=== PATIENT | male | born 1970 | race American Indian/Alaskan Native ===

== ENCOUNTER 2018-06-11 16:39 | Observation (INO) | payer MEDICARE, OTHER ==
--- NOTE | 2018-06-11 17:18 | C.PDOC ---
History Of Present Illness 48 y/o male with history of DM and HTN, on dialysis presents to ED with c/o left arm swelling radiating to left chest for 2 days. Patient state he missed dialysis yesterday and went to see Dr. Crenshaw today for medication refill and was sent to ED for further evaluation. Patient denies history of injury, sob, chest pain or any other complaints at this time. Time Seen by Provider: 06/11/18 16:58 Chief Complaint (Nursing): Upper Extremity Problem/Injury History Per: Patient History/Exam Limitations: no limitations Onset/Duration Of Symptoms: Days Current Symptoms Are (Timing): Still Present Quality: Aching Past Medical History Reviewed: Historical Data, Nursing Documentation, Vital Signs Vital Signs: Last Vital Signs Temp 98.1 F 06/11/18 16:46 Pulse 85 06/11/18 21:47 Resp 20 06/11/18 21:47 BP 176/98 H 06/11/18 21:47 Pulse Ox 98 06/11/18 21:47 - Medical History PMH: Diabetes, HTN, End Stage Renal Disease Other Surgeries: left AV fistula Family History: States: No Known Family Hx - Social History Hx Alcohol Use: No Hx Substance Use: No - Immunization History Hx Tetanus Toxoid Vaccination: No Hx Influenza Vaccination: No Hx Pneumococcal Vaccination: No Review Of Systems Constitutional: Negative for: Fever, Chills Cardiovascular: Negative for: Chest Pain Respiratory: Negative for: Cough, Shortness of Breath Musculoskeletal: Positive for: Arm Pain (swelling), Other (Sweling left breast) Skin: Negative for: Rash Physical Exam - Physical Exam Appears: Non-toxic, No Acute Distress Skin: Warm, Dry, No Rash Head: Atraumatic, Normacephalic Eye(s): bilateral: Normal Inspection Oral Mucosa: Moist Neck: Normal ROM, Other (venous engorgement to left side of neck) Chest: No Ecchymosis, Other (left breast swelling) Cardiovascular: Rhythm Regular Respiratory: Normal Breath Sounds, No Rales, No Rhonchi, No Wheezing Gastrointestinal/Abdominal: Soft, No Tenderness, No Guarding, No Rebound Extremity: Capillary Refill (<2 seconds), No Deformity, Swelling (left arm diffusely), Other (fistula on left arm with +thrill) Extremity: Bilateral: Normal ROM Neurological/Psych: Oriented x3, Normal Motor, Normal Sensation ED Course And Treatment - Laboratory Results Result Diagrams: 06/11/18 17:22 06/11/18 17:22 Lab Interpretation: Abnormal (Hgb 9.9, BUN 94. Cr 15.2, K+ 4.8) O2 Sat by Pulse Oximetry: 98 (RA) Pulse Ox Interpretation: Normal - CT Scan/US CTA Chest Other Rad Studies (CT/US): Read By Radiologist, Radiology Report Reviewed CT/US Interpretation: FINDINGS: Pulmonary arteries: Unremarkable. No pulmonary embolism. Aorta: No acute findings. No thoracic aortic aneurysm. Other veins: Left brachiocephalic vein metallic stent. The right tip of the stent appears compressed. The brachiocephalic vein is not clearly visualized distal to the stent. Lungs: Mild interstitial infiltrates in each lung which may be due to edema. Linear atelectasis or fibrosis left lung base. No mass. Pleural space : Unremarkable. No significant effusion. No pneumothorax. Heart: Coronary artery calcifications. No significant pericardial effusion. No evidence of RV dysfunction. Bones/joints: No acute fracture. No dislocation. Soft tissues: Diffuse subcutaneous edema consistent with anasarca. Lymph nodes: Unremarkable. No enlarged lymph nodes. IMPRESSION: 1. Diffuse subcutaneous edema consistent with anasarca. 2. Left brachiocephalic vein metallic stent. The right tip of the stent appears compressed. The. brachiocephalic vein is not clearly visualized distal to the stent. Cannot exclude occlusion of distal. brachiocephalic vein and a catheter venogram may be helpful if indicated. 3. Mild interstitial infiltrates in each lung which may be due to edema. CT Left Upper Extrem Other Rad Studies (CT/US): Read By Radiologist, Radiology Report Reviewed CT/US Interpretation: FINDINGS: Bones/joints: Unremarkable. No acute fracture. No dislocation. Soft tissues: Diffuse subcutaneous edema suggesting anasarca. Vasculature: Prominent veins in the left upper extremity consistent with patient 's known fistula. These veins are patent where visualized. The small veins below the elbow are poorly visualized. Atherosclerotic disease. IMPRESSION: 1. Diffuse subcutaneous edema suggesting anasarca. 2. Prominent veins in the left upper extremity consistent with patient's known fistula. These veins are. patent where visualized. The small veins below the elbow are poorly visualized. Reevaluation Time: 19:46 Reassessment Condition: Unchanged - Physician Consult Information Outcome Of Conversation: 19:[address] Sandra for nephrology consult. Patient will need dialysis today after CT scan is completed. Dr Sung agrees to admit the patient to her service for evaluation of left arm and chest wall swelling and possible DVT. Disposition - Disposition Disposition: HOSPITALIZED Disposition Time: 22:17 Condition: STABLE - Clinical Impression Clinical Impression: ESRD (end stage renal disease) on dialysis, Anasarca - Scribe Statement The provider has reviewed the documentation as recorded by the Harisibedith Monroy All medical record entries made by the Keke were at my direction and personally dictated by me. I have reviewed the chart and agree that the record accurately reflects my personal performance of the history, physical exam, medical decision making, and the department course for this patient. I have also personally directed, reviewed, and agree with the discharge instructions and disposition.
[2018-06-11 17:27] LABS: BASO % 0.9 % (0.0-2.0); EOS # 0.1 K/uL (0.0-0.7); EOS % 2.5 % (0.0-4.0); HEMOGLOBIN 9.9 g/dL (12.0-18.0); LYMPH # 0.6 K/uL (1.0-4.3); LYMPH % 10.2 % (20.0-40.0); MEAN CELL VOLUME 96.2 fL (80.0-94.0); MEAN CORPUSCULAR HEMOGLOBIN 31.5 pg (27.0-31.0); MEAN CORPUSCULAR HGB CONC 32.7 g/dL (33.0-37.0); MEAN PLATELET VOLUME 8.4 fL (7.2-11.7); MONO # 0.4 K/uL (0.0-0.8); MONO % 7.7 % (0.0-10.0); NEUT # 4.4 K/uL (1.8-7.0); NEUT % 78.7 % (50.0-75.0); RBC 3.16 Mil/uL (4.40-5.90); RED CELL DISTRIBUTION WIDTH 16.5 % (11.5-14.5); WHITE BLOOD COUNT 5.7 K/uL (4.8-10.8)
--- NOTE | 2018-06-11 17:28 | RAD ---
Date of service: 06/11/2018 PROCEDURE: CHEST RADIOGRAPH, 1 VIEW HISTORY: SOB COMPARISON: None available. FINDINGS: LUNGS: Prominence of the pulmonary vasculature may be secondary to AP technique and/or pulmonary vascular congestion. No focal consolidation. PLEURA: No pneumothorax or pleural fluid seen. CARDIOVASCULAR: Normal. OSSEOUS STRUCTURES: No significant abnormalities. VISUALIZED UPPER ABDOMEN: Normal. OTHER FINDINGS: Probable left brachiocephalic venous stent. IMPRESSION: Prominence of the pulmonary vasculature may be secondary to AP technique and/or pulmonary vascular congestion. No focal consolidation or pleural effusion.
[2018-06-11 17:42] LABS: ALB/GLOB RATIO 1.5 (1.0-2.1); ALBUMIN 4.3 g/dL (3.5-5.0); CALCIUM 6.9 mg/dl (8.6-10.4)
[2018-06-11] MEDS ORDERED: Iodixanol 320 MG/ML 100 ML BOTTLE IV ONE (20:10)
[2018-06-11] MEDS ORDERED: Oxycodone/Acetaminophen 5/325 mg Tab PO STA (21:23)
[2018-06-12] MEDS ORDERED: Ferric Sodium Gluconat Complex 62.5 mg/5 ml Vial IVPB SCH (03:00)
--- NOTE | 2018-06-12 09:24 | CP.PCM.CON ---
History of Present Illness - History of Present Illness History of Present Illness: 48 y/o male with ESRD on maintenance hemodialysis every MWF was admitted last night for c/o progresive swelling of Lt arm & chest for the past few days.. Pt saw his Dr yesterday for renewal of pain meds & was eferred to ER for further evluation. Pt receives dialysis in a [facility] [place] [facility] [facility] Pablo who does not come here. Pts PMH is also significant for HTN, CVA with Rt hemiparesis 6 yrs ago, Hx/o DM was on Metformin prior to dialysis . Has been on dialysis for 6 yrs. Takes Clonidine PRN & Phoslo with meals FHx is significant for DM,HTN but no kidney Dis. Review of Systems - Review of Systems Review of Systems: Appears comfortable supine. No SOB - Constitutional Constitutional: As Per HPI Past Patient History - Infectious Disease Hx of Infectious Diseases: None - Past Social History Smoking Status: Never Smoked - CARDIAC Hx Hypertension: Yes - NEUROLOGICAL HX Cerebrovascular Accident: Yes (6 yrs ago) Hx Seizures: No - RENAL Hx Chronic Kidney Disease: Yes Hx Dialysis: Yes (MWF via Lt arm AVF) Hx Renal Failure: Yes - ENDOCRINE/METABOLIC Hx Diabetes Mellitus Type 2: Yes - MUSCULOSKELETAL/RHEUMATOLOGICAL Hx Falls: No - PSYCHIATRIC Hx Substance Use: No Meds Allergies/Adverse Reactions: Allergies Allergy/AdvReac Type Severity Reaction Status Date / Time No Known Allergies Allergy Verified 06/11/18 16:46 Physical Exam - Constitutional Appears: No Acute Distress Additional comments: pleasant & cooperative - Head Exam Head Exam: ATRAUMATIC, NORMOCEPHALIC Additional comments: No facial edema - Eye Exam Additional comments: Conjunctivae pale Sclera anicteric - ENT Exam ENT Exam: Mucous Membranes Moist Additional comments: No devin swelling - Neck Exam Neck exam: Positive for: Normal Inspection Additional comments: Neck supple - Respiratory Exam Respiratory Exam: Wheezes (Lungs clear. No wheezes), NORMAL BREATHING PATTERN Additional comments: Lungs clear No wheezes - Cardiovascular Exam Cardiovascular Exam: REGULAR RHYTHM Additional comments: No rub or S3 Massive edema of Lt chest & Lt breast - GI/Abdominal Exam GI & Abdominal Exam: Soft Additional comments: No tenderness - Extremities Exam Additional comments: Massive edema of Lt arm. N redness or warmth around AVF. + bruit No pedal edema. PP palp. - Neurological Exam Neurological exam: Abnormal Gait Additional comments: Mild weakness of Rt leg Results - Vital Signs Recent Vital Signs: Last Vital Signs Temp 98.6 F 06/12/18 08:44 Pulse 50 L 06/12/18 08:44 Resp 20 06/12/18 08:44 BP 195/58 H 06/12/18 08:44 Pulse Ox 96 06/12/18 08:44 - Labs Result Diagrams: 06/11/18 17:22 06/11/18 17:22 Labs: Laboratory Results - last 24 hr 06/11/18 06/11/18 06/11/18 17:22 17:22 22:25 WBC 5.7 RBC 3.16 L Hgb 9.9 L Hct 30.4 L MCV 96.2 H MCH 31.5 H MCHC 32.7 L RDW 16.5 H Plt Count 176 MPV 8.4 Neut % (Auto) 78.7 H Lymph % (Auto) 10.2 L Austin % (Auto) 7.7 Eos % (Auto) 2.5 Baso % (Auto) 0.9 Neut # (Auto) 4.4 Lymph # (Auto) 0.6 L Austin # (Auto) 0.4 Eos # (Auto) 0.1 Baso # (Auto) 0.0 Sodium 143 Potassium 4.8 Chloride 102 Carbon Dioxide 25 Anion Gap 20 BUN 94 H Creatinine 15.2 H* Est GFR ( Amer) 4 Est GFR (Non-Af Amer) 3 Random Glucose 103 Calcium 6.9 L Total Bilirubin 0.5 AST 33 ALT 23 Alkaline Phosphatase 77 Total Protein 7.3 Albumin 4.3 Globulin 2.9 Albumin/Globulin Ratio 1.5 Hep Bs Antigen Negative Assessment & Plan - Assessment and Plan (Free Text) Assessment: ESRD dialysis dependent Lt arm & chest edema r/o stenosis of central veins/ lymphatic obstruction HTN Hx/o Lt CVA with Rt john Plan: Pt had CT of chest with IV contrast last night & had reeived short dialysis last night. Pt is scheduled for dialysis today Then continue HD schedule of MWF Monitor BP & adjust meds Phos ,intact PTH
--- NOTE | 2018-06-12 11:04 | CT ---
Date of service: 06/11/2018 PROCEDURE: CT Chest and left upper extremity with contrast (CT venography) HISTORY: CT venogram for left arm and chest swelling COMPARISON: None available. TECHNIQUE: Axial computed tomography images were obtained of the chest and left upper extremity in the venous phase of enhancement. Coronal and sagittal reformatted images were created and reviewed. Intravenous contrast dose: 100 mL Visipaque 320 Radiation dose: Total exam DLP = 811.0 mGy-cm. This CT exam was performed using one or more of the following dose reduction techniques: Automated exposure control, adjustment of the mA and/or kV according to patient size, and/or use of iterative reconstruction technique. FINDINGS: LUNGS: Unremarkable. No nodule, mass or pulmonary consolidation. PLEURAL SPACES: Unremarkable. No effusion or pneumothorax. HEART: Cardiomegaly. Coronary arterial and valvular calcification. No significant pericardial effusion. LYMPH NODES: No lymphadenopathy. BONES, CHEST WALL: Diffuse anasarca. No fracture or destructive lesion OTHER FINDINGS: Left upper extremity brachiocephalic fistula. Anastomosis difficult to evaluate. Juxta anastomotic outflow vein to indwelling brachiocephalic vein stent, widely patent. Difficult to evaluate intra stent patency due to suboptimal opacification. Distal (medial) portion of stent appears compressed with limited assessment of the brachiocephalic vein distal to the stent. Arteries and veins in the forearm and hand are suboptimally assessed, but appear grossly patent. IMPRESSION: Left upper extremity brachiocephalic arteriovenous fistula. The anastomosis is difficult to evaluate. The juxta anastomotic outflow vein to the indwelling brachycephalic vein stent is widely patent. Difficult to evaluate intra stent patency due to suboptimal opacification. The distal (medial) portion of the stent appears compressed with limited assessment of the brachiocephalic vein distal to the stent. Conventional arteriovenous fistulography is recommended for better assessment. Diffuse left upper extremity and left chest wall subcutaneous edema consistent with anasarca.
[2018-06-12 11:26] LABS: INR 1.1; PROTHROMBIN TIME 11.8 SECONDS (9.7-12.2)
--- NOTE | 2018-06-12 11:30 | HP ---
date 06/11/18Copied To: Stephanie Sung MD Attending MD: Stephanie Sung MD CHIEF COMPLAINT: Swelling of left upper extremity including left breast. HISTORY OF PRESENT ILLNESS: Mr. Sathya Hobbs is a 48-year-old male with history of diabetes mellitus, hypertension, renal insufficiency on hemodialysis, came with complaining of left upper extremity pain radiating to the left chest for two days. The patient states that he missed the dialysis yesterday and went to Dr. Crenshaw today for medication refill and was presented to ED for further evaluation. The patient denies history of anxiety, shortness of breath, chest pain or any other complaints at this time. I am trying to get emergency dialysis for the patient this night. CAT scan is done by the ER. PAST MEDICAL HISTORY: Diabetes mellitus, hypertension, history of renal disease on hemodialysis, left AV fistula. FAMILY HISTORY: Father and mother, noncontributory. HABITS: No smoking. No drug. No ethanol. REVIEW OF SYSTEMS: The patient was seen and examined at bedside. In the ER, having swelling of left upper extremity, left breast was swollen and tender. No fever. No chills. No headaches or dizziness. No shortness of breath. Skin, negative for rash. PHYSICAL EXAMINATION: VITAL SIGNS: Temperature 98.1, pulse 85, respiratory rate 20, blood pressure 120/98, pulse oximetry 98. HEENT: Head, normocephalic and atraumatic. Eyes, PERRLA. Extraocular muscles intact. Conjunctivae clear. Nose patent. NECK: Supple. No carotid bruit. No JVD or thyromegaly. CHEST: Bilaterally symmetrical. HEART: S1 and S2 positive. LUNGS: Clear to auscultation. ABDOMEN: Soft. Bowel sounds present. No organomegaly. EXTREMITIES: Left upper extremity swollen and other lower two extremities have no swelling. No cyanosis. NEUROLOGIC: The patient is awake and alert. Follows simple commands. LABORATORY DATA: White blood cells 5.7, hemoglobin 9.9, hematocrit 30.4, platelets 176. Sodium 142, potassium 4.8, BUN 92, creatinine 15.2, glucose 113. ASSESSMENT AND PLAN: Mr. Sathya Hobbs is a 48-year-old male with anemia; acute on chronic renal insufficiency, on hemodialysis, noncompliant, missed hemodialysis yesterday; history of diabetes mellitus; hypertension; left arteriovenous fistula; anasarca, noncompliant, urged to be compliant. Need angiography. CT results are pending. Chest x-ray done, shows prominence of the pulmonary vasculature, maybe secondary to technique and/or pulmonary vascular congestion. additional pleural effusion. We arranged immediate emergency dialysis. The patient is scheduled for hemodialysis. As per the nurse, the patient is getting itchy. I gave Benadryl. Blood pressure is high. She is going to the [facility] for blood pressure medications. Gastrointestinal and deep vein thrombosis prophylaxis. Repeat laboratories. We will follow up. Stephanei Sung MD MTDD
[2018-06-12 11:34] LABS: IRON 24 ug/dL (49-181)
[2018-06-12 11:44] LABS: % IRON SATURATION 12 (20-55); TOTAL IRON BINDING CAPACITY 200 ug/dL (250-450)
[2018-06-12 11:49] LABS: ALB/GLOB RATIO 1.3 (1.0-2.1); ALBUMIN 3.6 g/dL (3.5-5.0); BILIRUBIN,DIRECT 0.5 mg/dL (0.0-0.4)
[2018-06-12] MEDS ORDERED: Vancomycin 1 gm/NS 200 ml 1 GM/200 ML BAG IVPB SCH (12:00)
[2018-06-12 12:22] LABS: CALCIUM 7.3 mg/dl (8.6-10.4)
[2018-06-12 12:40] LABS: FOLATE 5.6 ng/mL
[2018-06-12] MEDS ORDERED: Oxycodone/Acetaminophen 5/325 mg Tab PO PRN (15:36)
[2018-06-12] MEDS ORDERED: Ferric Sodium Gluconat Complex 125 MG in Sodium Chloride 0.9% 100 ML IVPB SCH (16:00)
[2018-06-12] MEDS ORDERED: Ferric Sodium Gluconat Complex 62.5 mg/5 ml Vial ONE (17:15)
--- NOTE | 2018-06-12 17:45 | CP.PCM.CON ---
History of Present Illness - History of Present Illness History of Present Illness: Surgery: Dr. Giraldo CC: Swelling LUE HPI: 48M w. pmh of HTN, DM, ESRD presents with LUE and L side chest swelling x 3 days. He has pain at the areas when pressure is applied, otherwise no complaints. He denies SOB, no CP/palpitations, no numbness/weakness/parethesias in the affected extremity. PMH: see above PSH: LUE AVF Meds: MAR reviewed NKDA Social: No ETOH/Tobacco/Drugs Fhx: Non-contributory Review of Systems - Review of Systems All systems: reviewed and no additional remarkable complaints except (HPI) Past Patient History - Infectious Disease Hx of Infectious Diseases: None - Past Social History Smoking Status: Never Smoked - CARDIAC Hx Hypertension: Yes - NEUROLOGICAL HX Cerebrovascular Accident: Yes (6 yrs ago) Hx Seizures: No - RENAL Hx Chronic Kidney Disease: Yes Hx Dialysis: Yes (MWF via Lt arm AVF) Hx Renal Failure: Yes - ENDOCRINE/METABOLIC Hx Diabetes Mellitus Type 2: Yes - MUSCULOSKELETAL/RHEUMATOLOGICAL Hx Falls: No - PSYCHIATRIC Hx Substance Use: No Meds Allergies/Adverse Reactions: Allergies Allergy/AdvReac Type Severity Reaction Status Date / Time No Known Allergies Allergy Verified 06/11/18 16:46 - Medications Medications: Current Medications Calcium Acetate (Phoslo) 1,334 mg PO TIDCC [facility] Last Admin: 06/12/18 17:14 Dose: 1,334 mg Heparin Sodium (Porcine) (Heparin) 5,000 units SC Q12 [facility] Last Admin: 06/12/18 13:15 Dose: 5,000 units Vancomycin/Sodium Chloride (Vancomycin 1 Gm/Ns 200 Ml) 1 gm in 200 mls @ 133.333 mls/hr IVPB TTS NATALY PRN Reason: Protocol Stop: 06/17/18 12:01 Last Admin: 06/12/18 15:02 Dose: 133.333 mls/hr Ferric Sodium Gluconate Complex 125 mg/ Sodium Chloride 110 mls @ 110 mls/hr IVPB TTS NATALY Stop: 06/24/18 10:59 Last Admin: 06/12/18 17:15 Dose: 110 mls/hr Oxycodone/Acetaminophen (Percocet 5/325 Mg Tab) 1 tab PO Q6H PRN PRN Reason: Pain Stop: 06/15/18 15:37 Last Admin: 06/12/18 17:14 Dose: 1 tab Pneumococcal Polyvalent Vaccine (Pneumovax 23 Vaccine) 0.5 ml IM .ONCE ONE Stop: 06/13/18 10:01 Physical Exam - Constitutional Appears: Non-toxic, No Acute Distress - Head Exam Head Exam: ATRAUMATIC, NORMOCEPHALIC - Eye Exam Eye Exam: EOMI - ENT Exam ENT Exam: Mucous Membranes Moist - Neck Exam Neck exam: Positive for: Full Rom - Respiratory Exam Respiratory Exam: NORMAL BREATHING PATTERN. absent: Accessory Muscle Use, Respiratory Distress - Cardiovascular Exam Additional comments: Swollen L chest wall - GI/Abdominal Exam GI & Abdominal Exam: Soft. absent: Tenderness - Extremities Exam Additional comments: Swollen L bicep, sensation and motor fxn intact distally, AVF present w. thrill - Neurological Exam Neurological exam: Alert, Oriented x3 Results - Vital Signs Recent Vital Signs: Last Vital Signs Temp 98.3 F 06/12/18 15:30 Pulse 81 06/12/18 15:30 Resp 20 06/12/18 15:30 BP 197/91 H 06/12/18 15:30 Pulse Ox 98 06/12/18 15:30 - Labs Result Diagrams: 06/11/18 17:22 06/12/18 11:00 Labs: Laboratory Results - last 24 hr 06/11/18 06/11/18 06/12/18 17:22 22:25 11:00 PT INR APTT Sodium 143 Potassium 4.8 Chloride 102 Carbon Dioxide 25 Anion Gap 20 BUN 94 H Creatinine 15.2 H* Est GFR ( Amer) 4 Est GFR (Non-Af Amer) 3 Random Glucose 103 Hemoglobin A1c Calcium 6.9 L Phosphorus Iron TIBC % Saturation Total Bilirubin 0.5 0.5 Direct Bilirubin 0.5 H AST 33 21 ALT 23 26 Alkaline Phosphatase 77 75 Total Protein 7.3 6.3 Albumin 4.3 3.6 Globulin 2.9 2.7 Albumin/Globulin Ratio 1.5 1.3 Triglycerides 88 Cholesterol 132 LDL Cholesterol Direct 65 HDL Cholesterol 33 Vitamin B12 577 Folate 5.6 TSH 3rd Generation Hep Bs Antigen Negative 06/12/18 06/12/18 06/12/18 11:00 11:00 11:00 PT INR APTT Sodium 141 Potassium 4.1 Chloride 102 Carbon Dioxide 25 Anion Gap 18 BUN 60 H Creatinine 10.3 H* D Est GFR ( Amer) 7 Est GFR (Non-Af Amer) 5 Random Glucose 138 H Hemoglobin A1c 5.9 Calcium 7.3 L Phosphorus 5.8 H Iron 24 L TIBC 200 L % Saturation 12 L Total Bilirubin Direct Bilirubin AST ALT Alkaline Phosphatase Total Protein Albumin Globulin Albumin/Globulin Ratio Triglycerides Cholesterol LDL Cholesterol Direct HDL Cholesterol Vitamin B12 Folate TSH 3rd Generation 4.86 H Hep Bs Antigen 06/12/18 11:00 PT 11.8 INR 1.1 APTT 34 Sodium Potassium Chloride Carbon Dioxide Anion Gap BUN Creatinine Est GFR ( Amer) Est GFR (Non-Af Amer) Random Glucose Hemoglobin A1c Calcium Phosphorus Iron TIBC % Saturation Total Bilirubin Direct Bilirubin AST ALT Alkaline Phosphatase Total Protein Albumin Globulin Albumin/Globulin Ratio Triglycerides Cholesterol LDL Cholesterol Direct HDL Cholesterol Vitamin B12 Folate TSH 3rd Generation Hep Bs Antigen - Imaging and Cardiology CT scan - chest Status: Image reviewed by me, Report reviewed by me Assessment & Plan - Assessment and Plan (Free Text) Assessment: 48M w. swollen LUE likely 2/2 central stenosis -Fistulogram tomorrow -NPO at midnight -AM labs -consent in chart -d/w attending Trina PGY4
[2018-06-13] MEDS ORDERED: DiphenhydrAMINE 50 mg/ml Inj IVP STA (02:10)
--- NOTE | 2018-06-13 05:18 | PN ---
Copied To: Stephanie Sung MD Attending MD: Stephanie Sung MD DATE: 06/12/2018 SUBJECTIVE: The patient is seen and examined at the bedside in the dialysis center, getting dialysis, sleepy, arousable, moving all 4 extremities. No focal deficit. Swelling of the left upper extremity and left breast is a little bit better. No fever. No chills. No shortness of breath. PHYSICAL EXAMINATION: VITAL SIGNS: Temperature 98.5, pulse 50, respiratory rate 20, blood pressure 195/58, pulse oximetry 96. HEENT: Head, normocephalic and atraumatic. Eyes, PERRLA. Extraocular muscles intact. Conjunctivae clear. Nose patent. Mucous membranes are moist. NECK: Supple. No carotid bruit, JVD, or thyromegaly. CHEST: Bilaterally symmetrical. HEART: S1 and S2 positive. LUNGS: Clear to auscultation. ABDOMEN: Soft. Bowel sounds present. No organomegaly. EXTREMITIES: Left upper extremity swollen; and lower both extremities, no edema, no cyanosis. NEUROLOGIC: The patient is sleepy, arousable, moving all 4 extremities. No focal deficit. LABORATORY DATA: White blood cell 5.7, hemoglobin 9.9, hematocrit 30.4, platelets 176. Sodium 140, potassium 4.8, BUN 94, creatinine 15.2, glucose 113. MEDICATIONS: Reviewed by me. ASSESSMENT AND PLAN: Mr. Sathya Hobbs is a 48-year-old male with end-stage renal disease, on hemodialysis dependent chest edema, rule out stenosis of the central vein, obstruction, hypertension, history of left cerebrovascular accident with right hemiplegia. The patient had CAT of the chest with IV contrast last night and had received short dialysis last night and getting full dialysis today. Hemodialysis is on Saturday, Saturday, and Saturday. 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 We will check labs. The patient was seen by pain management yesterday, and sent to the emergency room for evaluation of left upper extremity and left chest swelling. Normally, the patient receives dialysis at [facility] in [place] The patient has history of diabetes mellitus, was on metformin prior to his dialysis. He is getting dialysis almost [address] Liu Sandra's notes, angio CT done. The patient will be n.p.o. after midnight. We will go for procedure by Dr. Kristal self. Repeat labs. We will follow up. Stephanie Sung MD [place]
[2018-06-13 08:06] LABS: HEMOGLOBIN 10.7 g/dL (12.0-18.0); MEAN CELL VOLUME 95.8 fL (80.0-94.0); MEAN CORPUSCULAR HEMOGLOBIN 32.3 pg (27.0-31.0); MEAN CORPUSCULAR HGB CONC 33.8 g/dL (33.0-37.0); MEAN PLATELET VOLUME 9.4 fL (7.2-11.7); RBC 3.31 Mil/uL (4.40-5.90); RED CELL DISTRIBUTION WIDTH 16.2 % (11.5-14.5); WHITE BLOOD COUNT 4.1 K/uL (4.8-10.8)
[2018-06-13 08:37] LABS: ALB/GLOB RATIO 1.2 (1.0-2.1); ALBUMIN 3.6 g/dL (3.5-5.0)
[2018-06-13] MEDS ORDERED: Pneumococcal 23-Valent Vaccine IM ONE (10:00)
[2018-06-13] MEDS ORDERED: HEPARIN-NS 5,000 UNITS/500 ML 0 UNIT/0 ML BAG IV ONE ×2 (13:07→14:09)
[2018-06-13] MEDS ORDERED: Iohexol 240 200 ML ONE (13:07)
--- NOTE | 2018-06-13 13:07 | CP.PCM.PN ---
Subjective - Date & Time of Evaluation Date of Evaluation: 06/13/18 Time of Evaluation: 01:00 - Subjective Subjective: Pt is currently in OR for fistulagram Objective - Vital Signs/Intake and Output Vital Signs (last 24 hours): Temp Pulse Resp BP Pulse Ox 98.3 F 81 20 170/89 H 98 06/12/18 15:30 06/13/18 11:44 06/12/18 21:00 06/13/18 10:56 06/12/18 15:30 - Medications Medications: Current Medications Amlodipine Besylate (Norvasc) 10 mg PO DAILY [facility] Last Admin: 06/13/18 09:07 Dose: 10 mg Calcium Acetate (Phoslo) 1,334 mg PO TIDCC [facility] Last Admin: 06/13/18 11:51 Dose: Not Given Clonidine HCl (Catapres) 0.3 mg PO BID [facility] Last Admin: 06/13/18 09:08 Dose: 0.3 mg Heparin Sodium (Porcine) (Heparin) 5,000 units SC Q12 [facility] Last Admin: 06/13/18 09:19 Dose: Not Given Vancomycin/Sodium Chloride (Vancomycin 1 Gm/Ns 200 Ml) 1 gm in 200 mls @ 133.333 mls/hr IVPB TTS NATALY PRN Reason: Protocol Stop: 06/17/18 12:01 Last Admin: 06/12/18 15:02 Dose: 133.333 mls/hr Ferric Sodium Gluconate Complex 125 mg/ Sodium Chloride 110 mls @ 110 mls/hr IVPB TTS [facility] Stop: 06/24/18 10:59 Last Admin: 06/12/18 17:15 Dose: 110 mls/hr Losartan Potassium (Cozaar) 100 mg PO DAILY [facility] Last Admin: 06/13/18 09:07 Dose: 100 mg Oxycodone/Acetaminophen (Percocet 5/325 Mg Tab) 1 tab PO Q6H PRN PRN Reason: Pain Stop: 06/15/18 15:37 Last Admin: 06/12/18 17:14 Dose: 1 tab Paricalcitol (Zemplar) 2 mcg IV TTS [facility] - Labs Labs: 06/13/18 07:58 06/13/18 07:58 PT 11.8 SECONDS (9.7-12.2) 06/12/18 11:00 INR 1.1 06/12/18 11:00 APTT 34 SECONDS (21-34) 06/12/18 11:00 Assessment and Plan - Assessment and Plan (Free Text) Assessment: ESRD SHPT AVF malfunction HTN Anemia Plan: Await report of fistulagram Add Zemplar for SHPT Repeat CBC BP is better controlled
[2018-06-13] MEDS ORDERED: ceFAZolin IV 1 gm in Dextrose 0 GM/0 ML BAG IVPB ONE (13:16)
--- NOTE | 2018-06-13 13:23 | CP.PCM.PN ---
Subjective - Date & Time of Evaluation Date of Evaluation: 06/13/18 Time of Evaluation: 01:20 - Subjective Subjective: Pt just returned from OR Appears comfortable Objective - Vital Signs/Intake and Output Vital Signs (last 24 hours): Temp Pulse Resp BP Pulse Ox 98.3 F 81 20 170/89 H 98 06/12/18 15:30 06/13/18 11:44 06/12/18 21:00 06/13/18 10:56 06/12/18 15:30 - Medications Medications: Current Medications Amlodipine Besylate (Norvasc) 10 mg PO DAILY [facility] Last Admin: 06/13/18 09:07 Dose: 10 mg Calcium Acetate (Phoslo) 1,334 mg PO TIDCC [facility] Last Admin: 06/13/18 11:51 Dose: Not Given Clonidine HCl (Catapres) 0.3 mg PO BID [facility] Last Admin: 06/13/18 09:08 Dose: 0.3 mg Heparin Sodium (Porcine) (Heparin) 5,000 units SC Q12 [facility] Last Admin: 06/13/18 09:19 Dose: Not Given Vancomycin/Sodium Chloride (Vancomycin 1 Gm/Ns 200 Ml) 1 gm in 200 mls @ 133.333 mls/hr IVPB TTS NATALY PRN Reason: Protocol Stop: 06/17/18 12:01 Last Admin: 06/12/18 15:02 Dose: 133.333 mls/hr Ferric Sodium Gluconate Complex 125 mg/ Sodium Chloride 110 mls @ 110 mls/hr IVPB TTS [facility] Stop: 06/24/18 10:59 Last Admin: 06/12/18 17:15 Dose: 110 mls/hr Losartan Potassium (Cozaar) 100 mg PO DAILY [facility] Last Admin: 06/13/18 09:07 Dose: 100 mg Oxycodone/Acetaminophen (Percocet 5/325 Mg Tab) 1 tab PO Q6H PRN PRN Reason: Pain Stop: 06/15/18 15:37 Last Admin: 06/12/18 17:14 Dose: 1 tab Paricalcitol (Zemplar) 2 mcg IV TTS [facility] - Labs Labs: 06/13/18 07:58 06/13/18 07:58 PT 11.8 SECONDS (9.7-12.2) 06/12/18 11:00 INR 1.1 06/12/18 11:00 APTT 34 SECONDS (21-34) 06/12/18 11:00 - Eye Exam Eye Exam: Normal appearance Additional comments: Conjunctivae pale No icterus - ENT Exam ENT Exam: Mucous Membranes Moist - Neck Exam Additional comments: JVD negative - Respiratory Exam Respiratory Exam: NORMAL BREATHING PATTERN Additional comments: Lungs clear - Cardiovascular Exam Cardiovascular Exam: REGULAR RHYTHM Additional comments: RR S1,S2 normal - GI/Abdominal Exam GI & Abdominal Exam: Soft - Extremities Exam Additional comments: Marked decrease in Lt arm edema. + bruit No pedal edema Assessment and Plan - Assessment and Plan (Free Text) Assessment: ESRD on HD SHPT Malfunction of Lt arm AVF. HTN Anemia Plan: Awaiting Fistulagram report BP is better controlled Add Zemplar with HD Iron profile was reviewed. Ferrlecit is added Repeat CBC
--- NOTE | 2018-06-13 14:54 | VASCLAB ---
Date of service: 06/13/2018 PROCEDURE: Left Upper Extremity Venous Duplex Exam HISTORY: swelling left arm and chest wall PRIORS: None. TECHNIQUE: Left upper extremity, internal jugular, subclavian, axillary, brachial, ulnar, radial, basilic and upper cephalic veins were evaluated. Flow was assessed with color Doppler, compressibility, assessment of phasic flow and augmentation response. Report prepared by Johann Diamond, T FINDINGS: LEFT: 1. Internal Jugular: 1.1. Compressibility - Fully compressible: Thrombus - None : Flow - Phasic: Augmentation -Normal: Reflux - . 2. Subclavian: 2.1. Compressibility - Fully compressible: Thrombus - None : Flow - Phasic: Augmentation -Normal: Reflux - . 3. Axillary: 3.1. Compressibility - Fully compressible: Thrombus - None : Flow - Phasic: Augmentation -Normal: Reflux - . 4. Brachial: 4.1. Compressibility - Fully compressible: Thrombus - None: Flow - Phasic: Augmentation -Normal: Reflux - . 5. Ulnar: 5.1. Compressibility - Fully compressible: Thrombus - None: Flow - : Augmentation -: Reflux - . 6. Radial: 6.1. Compressibility - Fully compressible: Thrombus - None: Flow - : Augmentation - : Reflux - . 7. Cephalic: 7.1. Compressibility - Fully compressible: Thrombus - None: Flow - Pulsatile: Augmentation -: Reflux - . 8. Basilic: 8.1. Compressibility - Fully compressible: Thrombus - None: Flow - : Augmentation -: Reflux - . OTHER FINDINGS: Left: There was a patent and functional brachio-cephalic AVF noted. IMPRESSION: Left: No evidence of vein thrombosis of the left upper extremity with excellent venous flow. Normal venous flow noted in the right internal jugular and right subclavian veins.
--- NOTE | 2018-06-13 15:49 | PCM.SURG1 ---
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 previous stent in left innominate vein. rest of fistula widely patent. no intervention completed Post-Operative Diagnosis: same Operation Performed: fistulagram left arm Specimen/Specimens Removed: 0 Estimated Blood Loss: EBL {In ML}: 5 Blood Products Given: N/A Drains Used: No Drains Post-Op Condition: Good Date of Surgery/Procedure: 06/13/18 Time of Surgery/Procedure: 15:49
[2018-06-13 16:35] VITALS: RESP 18
[2018-06-13 16:37] VITALS: O2SAT 100
[2018-06-13 18:42] VITALS: BP 132/89; PULSE 73; TEMP 97.7
--- NOTE | 2018-06-13 19:45 | CARD ---
APPROVED REPORT Date of service: 06/12/2018 EKG Measurement Heart [id number] <Conclusion> Normal sinus rhythm Anteroseptal infarct, age undetermined T wave abnormality, consider lateral ischemia Abnormal ECG
[2018-06-14] MEDS ORDERED: Paricalcitol 2 mcg/ml Inj IV SCH (10:00)
--- NOTE | 2018-06-14 12:49 | VAS ---
Copied To: Demetrius Giraldo Jr., MD Attending MD: Demetrius Giraldo Jr., MD DATE: 06/13/2018 PREOPERATIVE DIAGNOSES: Renal failure, left arm swelling, central vein stenosis. PROCEDURE CARRIED OUT: fistulogram left arm. SURGEON: Demetrius Giraldo Jr., MD BULK PICKER: None. ANESTHESIOLOGIST: Angelina Newman CRNA ANESTHESIA: Local with sedation. INDICATIONS: The patient is a middle-aged man with renal insufficiency, has swollen left arm. OPERATIVE FINDINGS: A fistulogram was carried out in the left arm using micropuncture technique with puncture to the left arm fistula. We advanced the catheter centrally, carried out fistulogram. The central vein, however, there was a previously placed stent in the left innominate vein. The stent is occluded at its distal segment close to the heart. The proximal portion lies across the vessel making it quite difficult to cannulate. The rest of the fistula does not show any significant widely patent, more proximal portion closer to arterial anastomosis does show aneurysmal degeneration, but the arterial anastomosis was widely patent without any arterial stenosis. PROCEDURE AND FINDINGS: Subsequent to the performance of the diagnostic arteriogram, a stiff-angled guidewire was advanced to the level of the occlusion and attempts were made using variety of catheters including a RIM catheter, CRISTOBAL catheter to cannulate this. There were all unsuccessful. Attempts were made occasionally where we were able to cross a closet where inside the mesh of the stent and thus we abandoned further attempts of doing it. In addition, the distal portion of stent was fully occluded. Attempts should be made perhaps from the leg, but I think it may be worthwhile for the patient to go to the institution where this was carried out initially in an attempt to remedy. Demetrius Giraldo Jr., MD cc: Liu Taylor
== END 2018-06-13 20:10 | disposition left against medical advice (07) ==
LOC: C.ER 16:39 → C.9E 19:49 → C.6T 21:06
PROVIDERS: ADMIT Internal Medicine; ATTEND Internal Medicine
DX: I12.0 Hypertensive chronic kidney disease with stage 5 chronic kidney disease or end stage renal disease (principal); E11.22 Type 2 diabetes mellitus with diabetic chronic kidney disease; D64.9 Anemia, unspecified; N18.6 End stage renal disease; Z91.19 Patient's noncompliance with other medical treatment and regimen; Z99.2 Dependence on renal dialysis; K21.9 Gastro-esophageal reflux disease without esophagitis; I69.954 Hemiplegia and hemiparesis following unspecified cerebrovascular disease affecting left non-dominant side
CPT/HCPCS: 36415; 36901; 71045; 71275; 80048; 80053; 80061; 80076; 82607; 82746; 83036; 83540; 83550; 83970; 84100; 84443; 85025; 85027; 85610; 85730; 87040; 87340; 93005; 93971; 99285; C1725; C1766; C1769; C1887; G0257; G0378; J1200; J2916; J3370; Q9967